=== PATIENT | female | born 1955 | race Caucasian/White ===

== ENCOUNTER 2018-11-23 08:00 | Inpatient (IN) | payer OTHER ==
[2018-11-20 08:49] VITALS: BMI 22.3
[2018-11-23] MEDS ORDERED: FLU VACCINE QUAD 60 MCG/0.5 ML (MDV 18-19) IM ONE (10:00)
[2018-11-23] MEDS ORDERED: PNEUMOC 13-VAL CONJ-DIP CRM/PF 0.5 ML DISP.SYRIN IM ONE (10:04)
[2018-11-23] MEDS ORDERED: BENZOIN TINCTURE SWABSTICK TP ONE (10:09)
[2018-11-23] MEDS ORDERED: HEPARIN NA (PORCINE) 5,000 UNITS/ML 1ML VIAL ONE (10:09)
[2018-11-23] MEDS ORDERED: THROMBIN (BOVINE) 5,000 UNIT VIAL TP ONE (10:10)
[2018-11-23] MEDS ORDERED: fentaNYL CITRATE 250 MCG/5 ML VIAL ONE (12:28)
[2018-11-23] MEDS ORDERED: MIDAZOLAM HCL 2 MG/2 ML SINGLE DOSE VIAL ONE (12:28)
[2018-11-23] MEDS ORDERED: PROPOFOL 20 ML ONE ×17 (12:35→15:39)
[2018-11-23] MEDS ORDERED: ceFAZolin SODIUM 1 GM VIAL IVPB ONE ×2 (12:55→16:05)
[2018-11-23] MEDS ORDERED: PROMETHAZINE HCL 25 MG/1 ML VIAL IVPB PRN (12:58)
[2018-11-23] MEDS ORDERED: DEXAMETHASONE SOD PHOSPHATE 4 MG/1 ML VIAL IVPUSH PRN (12:58)
[2018-11-23] MEDS ORDERED: ONDANSETRON 4 MG/2 ML VIAL IVPUSH PRN ×2 (12:58→16:41)
[2018-11-23] MEDS ORDERED: TRANEXAMIC ACID 1000 MG/10 ML VIAL ONE (13:11)
[2018-11-23] MEDS ORDERED: ceFAZolin SODIUM 1 GM VIAL ONE ×2 (13:11→16:09)
[2018-11-23] MEDS ORDERED: DESFLURANE GAS 240 ML BOTTLE IH ONE (14:09)
[2018-11-23] MEDS ORDERED: VANCOMYCIN 1,000 MG VIAL (RESTRICTED TO ID ONLY) IVPB ONE (16:05)
[2018-11-23] MEDS ORDERED: oxyCODONE HCL 5 MG TABLET PO PRN ×2 (16:41)
[2018-11-23] MEDS ORDERED: diphenhydrAMINE HCL 25 MG CAPSULE (FP) PO PRN (16:41)
--- NOTE | 2018-11-23 17:21 | OP ---
Operative Note - Note: Operative Date: 11/23/18 Pre-Operative Diagnosis: C3-C4, C4-C5, C5-C6 disc prolapse with associated reactive bone formation due to osteophyte disc complex behind the vertebral bodies of C3, C4, C5 and C6. Associated with cervical spondylogenic myelopathy and right sided C6-C7 radiculopathy. Operation: 1. Colpectomy C4-C5, 2. Partial colpectomy C3, C4, C5 and C6. 3. Insertion of interbody cage device C3-C7. 4. Anterior arthrodesis C3 to C7. 5. Anterior plating C3-C7. Findings: as dictated Implants: as dictated Post-Operative Diagnosis: Same as Pre-op Surgeon: Pineda Dial Sort Line Worker: Claudine Nichols Anesthesiologist/HAND COKE DRAWER: Don Arreaga Anesthesia: General Specimens Removed: C3-4, C4-5 disc Estimated Blood Loss (mls): 50 (ml) Drains, Volume Out (mls): 700 (ml clear urine ) Fluid Volume Replaced (mls): 1,600 (ml) Operative Report Dictated: Yes
[2018-11-23] MEDS: LACTATED RINGERS SOLUTION 1000 ML INFUS.BAG IV SCH (17:33)
[2018-11-23] MEDS: MORPHINE SULFATE 2 MG/ML VIAL IVPUSH PRN (17:38)
[2018-11-23] MEDS ORDERED: CEFAZOLIN 1 GM/D5W 1 GM/50 ML BAG IVPB SCH (18:00)
--- NOTE | 2018-11-23 18:07 | CONSULT ---
Consultation: REQUESTING PROVIDER: Dr. Dial CONSULT REQUEST: We have been asked to medically evaluate this patient for post- op ICU monitoring. HISTORY OF PRESENT ILLNESS: 63F w/ pmhx of HTN, HLD, and cervical disc disorder presents to the ICU s/p C3- C4 partial corpectomy, C4-C5 anterior cervical corpectomy, POD #0. Unable to provide full interview upon exam as pt is still recovering from sedation. Denies leija/d, n/v, chest pain, sob, abd pain, numbness/tingling/pain in u/l b/l extremities. REVIEW OF SYSTEMS: Unable to obtain. PHYSICAL EXAMINATION Vital Signs - 24 hr 11/23/18 11/23/18 11/23/18 09:57 10:06 10:07 Temperature 98.3 F 98.3 F Pulse Rate 65 65 Respiratory 20 20 Rate Blood Pressure 147/61 147/61 O2 Sat by Pulse 96 Oximetry (%) GENERAL: Sedated. Lethargic. Open eyes upon verbal command. HEENT: AT/NC. Surgical dressing on anterior neck, c/d/i. Lungs: Mild inspiratory wheezes b/l anteriorly. CV: RRR. Normal S1, S2. No murmurs noted. Abd: Soft, NT/ND. Normoactive bs. No masses noted. Neuro: Facial muscles intact. B/l facial sensation intact. Responds to commands. Moves b/l feet and toes with sensation intact. +5/5 hand operations business partner b/l. Active Medications Atorvastatin Calcium (Lipitor -) 10 mg PO HS ARIANE Dexamethasone Sodium Phosphate (Decadron Injection -) 4 mg IVPUSH ONCE PRN PRN Reason: NAUSEA AND/OR VOMITING Diphenhydramine HCl (Benadryl Injection -) 12.5 mg IVPUSH ONCE PRN PRN Reason: FOR ITCHING Diphenhydramine HCl (Benadryl -) 25 mg PO Q6H PRN PRN Reason: FOR ITCHING Docusate Sodium (Colace -) 100 mg PO TID [facility] Fentanyl (Sublimaze Injection -) 50 mcg IVPUSH [id number] PRN PRN Reason: PAIN-PACU ORDER X 4 DOSES ONLY Last Admin: 11/23/18 17:22 Dose: 50 mcg Ferrous Sulfate (Feosol -) 325 mg PO DAILY [facility] Gabapentin (Neurontin -) 300 mg PO TID [facility] Hydrochlorothiazide (Hctz -) 25 mg PO DAILY [facility] Hydromorphone HCl (Dilaudid Medart Operator -) 10 mg CHIEF HUMAN RESOURCES OFFICER CHIEF HUMAN RESOURCES OFFICER [facility]; Protocol Stop: 11/30/18 12:58 Lactated Ringer's (Lactated Ringers Solution) 1,000 mls @ 125 mls/hr IV ASDIR [facility] Cefazolin Sodium (Ancef 1 Gm Premixed Ivpb -) 1 gm in 50 mls @ 100 mls/hr IVPB Q8H [facility] Stop: 11/24/18 20:44 Influenza Virus Vaccine Quadrival (Flulaval Quad [id number]) 60 mcg IM .ONCE ONE Stop: 11/23/18 10:01 Lactated Ringer's (Lactated Ringers Solution) 100 ml IV ASDIR [facility] Last Admin: 11/23/18 17:33 Dose: 100 ml Lisinopril (Prinivil) 20 mg PO DAILY [facility] Metoprolol Tartrate (Lopressor -) 100 mg PO DAILY [facility] Morphine Sulfate (Morphine Sulfate) 4 mg IVPUSH Q4H PRN PRN Reason: PAIN LEVEL 7 - 10 Last Admin: 11/23/18 17:38 Dose: 4 mg Ondansetron HCl (Zofran Injection) 4 mg IVPUSH Q4H PRN PRN Reason: NAUSEA AND/OR VOMITING Oxycodone HCl (Roxicodone -) 5 mg PO Q4H PRN PRN Reason: PAIN LEVEL 1-5 Oxycodone HCl (Roxicodone -) 10 mg PO Q4H PRN PRN Reason: PAIN LEVEL 6-10 Pneumococcal 13-Valent Conj Vacc (Prevnar 13 Syringe -) 0.5 ml IM .ONCE ONE Stop: 11/23/18 10:05 Promethazine HCl (Phenergan Injection -) 12.5 mg IVPB Q6H PRN PRN Reason: NAUSEA AND/OR VOMITING ASSESSMENT/PLAN: 63F w/ pmhx of HTN, HLD, and cervical disc disorder presents to the ICU s/p C3- C4 partial corpectomy, C4-C5 anterior cervical corpectomy, POD #0. #Cervical disc disorder; s/p C3-C4 partial corpectomy, C4-C5 anterior cervical corpectomy, POD #0. -Pain control: Dilaudid CHIEF HUMAN RESOURCES OFFICER, Fentanyl 50 mcg IVP Q5min, Gabapentin 500 TID, Morphine 4 Q4H IVP, Oxycodone 5 Q4H PO, Oxycodone 10 Q4H PO -Zofran 4 Q4H IVP -Benadryl 25 mg PO Q6H for itching -LR @ 125 -IV abx as per surg -IS, SCDs -PT -Neurosurg recs #HTN/HLD -Atorvastatin 10 HS, HCTZ 25 QD, Lisinopril 20 QD, Metoprolol 100 QD #Prophylaxis -SCDs #FEN -LR @ 125 -repletes lytes PRN -Soft diet dispo -Admit to ICU Dispo: We will continue to follow the patient. Thank you for this consultative opportunity. Visit type - Emergency Visit Emergency Visit: Yes ED Registration Date: 11/23/18 Care time: The patient presented to the Emergency Department on the above date and was hospitalized for further evaluation of their emergent condition. - New Patient This patient is new to me today: Yes Date on this admission: 11/24/18 - Critical Care Critical Care patient: Yes Total Critical Care Time (in minutes): 35 Critical Care Statement: The care of this patient involved high complexity decision making to prevent further life threatening deterioration of the patient 's condition and/or to evaluate & treat vital organ system(s) failure or risk of failure.
[2018-11-23] MEDS: HYDROmorphone *PCA* 10MG/50ML DISP.SYRIN PCA SCH (18:11)
[2018-11-23] MEDS: LACTATED RINGERS SOLUTION 1,000 ML IV SCH (20:53)
[2018-11-23] MEDS: DOCUSATE SODIUM 100 MG CAPSULE (FP) PO SCH (21:06)
[2018-11-23] MEDS: GABAPENTIN 300 MG CAPSULE (FP) PO SCH (21:06)
[2018-11-23] MEDS: CEFAZOLIN 1 GM/D5W 1 GM/50 ML BAG IVPB SCH (21:07)
--- NOTE | 2018-11-23 22:21 | PN ---
Physical Exam: SUBJECTIVE: Patient seen and examined at bedside. s/p C4-C5 anterior Cervical Discectomy with Fusion and Partial Corpectomy POD #0. Alert, awake and oriented x3. Patient reports having elective cervical discectomy secondary to cervical pain with parasthesias to hands/feet. Patient reports cervical pain 7/10. Patient reports having a non-productive cough. Patient reports having feeling in b/l feet and hands. Patient has Mancini draining yellow urine in collection bag. She denies having flatulence or BM. Patient denies fever, chills, SOB, dizziness, CP, palpitations, AP, N/V/D. OBJECTIVE: Vital Signs Period Temp Pulse Resp BP Sys/Valentine Pulse Ox Last 24 Hr 98.1 F-98.8 F 65-74 12-20 147-167/61-93 95-96 GENERAL: The patient is awake, alert, and fully oriented, in no acute distress. HEAD: Normal with no signs of trauma. 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 No ptosis. ENT: Ears normal, nares patent, oropharynx clear without exudates, moist mucous membranes. NECK: Dressing C/D/I. Trachea midline, Limited range of motion, supple. LUNGS: Breath sounds equal, clear to auscultation bilaterally, no wheezes, no crackles, no accessory muscle use. HEART: Regular rate and rhythm, S1, S2 without murmur, rub or gallop. ABDOMEN: Hypoactive bowel sounds. Soft, nontender, nondistended, no guarding, no rebound, no hepatosplenomegaly, no masses. GENITOURINARY: Mancini catheter with yellow urine in drainage bag EXTREMITIES: 2+ pulses, warm, well-perfused, no edema. NEUROLOGICAL: Cranial nerves II through XII grossly intact. Normal speech, gait not observed. PSYCH: Normal mood, normal affect. SKIN: Warm, dry, normal turgor, no rashes or lesions noted Active Medications Generic Name Dose Route Start Last Admin Trade Name Freq PRN Reason Stop Dose Admin Atorvastatin Calcium 10 mg 11/24/18 22:00 Lipitor - PO HS ARIANE Dexamethasone Sodium Phosphate 4 mg 11/23/18 12:58 Decadron Injection - IVPUSH ONCE PRN NAUSEA AND/OR VOMITING Diphenhydramine HCl 12.5 mg 11/23/18 12:58 11/23/18 21:06 Benadryl Injection - IVPUSH 12.5 mg ONCE PRN Administration FOR ITCHING Diphenhydramine HCl 25 mg 11/23/18 16:41 Benadryl - PO Q6H PRN FOR ITCHING Docusate Sodium 100 mg 11/23/18 22:00 11/23/18 21:06 Colace - PO 100 mg TID ARIANE Administration Fentanyl 50 mcg 11/23/18 12:58 11/23/18 17:58 Sublimaze Injection - IVPUSH 50 mcg [id number] PRN Administration PAIN-PACU ORDER X 4 DOSES ONLY Ferrous Sulfate 325 mg 11/24/18 10:00 Feosol - PO DAILY [facility] Gabapentin 300 mg 11/23/18 22:00 11/23/18 21:06 Neurontin - PO 300 mg TID ARIANE Administration Hydrochlorothiazide 25 mg 11/24/18 10:00 Hctz - PO DAILY [facility] Hydromorphone HCl 10 mg 11/23/18 13:00 11/23/18 18:11 Dilaudid Software Performance Engineer - FILM WRITER 11/30/18 12:58 10 mg FILM WRITER ARIANE Administration Protocol Lactated Ringer's 1,000 mls @ 125 mls/hr 11/23/18 13:00 11/23/18 20:53 Lactated Ringers Solution IV Not Given ASDIR [facility] Cefazolin Sodium 1 gm in 50 mls @ 100 mls/hr 11/23/18 20:45 11/23/18 21:07 Ancef 1 Gm Premixed Ivpb - IVPB 11/24/18 20:44 100 mls/hr Q8H ARIANE Administration Influenza Virus Vaccine Quadrival 60 mcg 11/23/18 10:00 Flulaval Quad [id number] IM 11/23/18 10:01 .ONCE ONE Lactated Ringer's 100 ml 11/23/18 17:15 11/23/18 17:33 Lactated Ringers Solution IV 100 ml ASDIR ARIANE Administration Lisinopril 20 mg 11/24/18 10:00 Prinivil PO DAILY [facility] Metoprolol Tartrate 100 mg 11/24/18 10:00 Lopressor - PO DAILY [facility] Morphine Sulfate 4 mg 11/23/18 16:41 11/23/18 17:38 Morphine Sulfate IVPUSH 4 mg Q4H PRN Administration PAIN LEVEL 7 - 10 Ondansetron HCl 4 mg 11/23/18 12:58 Zofran Injection IVPUSH Q4H PRN NAUSEA AND/OR VOMITING Oxycodone HCl 5 mg 11/23/18 16:41 Roxicodone - PO Q4H PRN PAIN LEVEL 1-5 Oxycodone HCl 10 mg 11/23/18 16:41 Roxicodone - PO Q4H PRN PAIN LEVEL 6-10 Pneumococcal 13-Valent Conj Vacc 0.5 ml 11/23/18 10:04 Prevnar 13 Syringe - IM 11/23/18 10:05 .ONCE ONE Promethazine HCl 12.5 mg 11/23/18 12:58 Phenergan Injection - IVPB Q6H PRN NAUSEA AND/OR VOMITING ASSESSMENT/PLAN: This is a 63 y/o woman with a PMHx of: HTN, HLD, Chronic Cervical Pain, Renal Colic. s/p C4-C5 Anterior Cervical Discectomy with Fusion and Partial Corpectomy POD #0 Plan: Continue Ortho Regimen Continue cardiac monitoring Monitor CBC, BMP Pain Mgmt per ortho Resume diet when patient has flatulence, BS present Continue IVF Continue Mancini, d/c when ambulatory Continue Lisinopril, Lopressor, HCTZ, Gabapentin Fall Precautions Neurovascular checks Bowel regimen- Colace DVT ppx- OOB, SCDs Code Status: Full Code Dispo: Requires Inpatient Care Problem List - Problems (1) S/P cervical discectomy Code(s): Z98.890 - OTHER SPECIFIED POSTPROCEDURAL STATES (2) Cervical pain (neck) Code(s): M54.2 - CERVICALGIA (3) HTN (hypertension) Code(s): I10 - ESSENTIAL (PRIMARY) HYPERTENSION (4) HLD (hyperlipidemia) Code(s): E78.5 - HYPERLIPIDEMIA, UNSPECIFIED (5) Macular degeneration Code(s): H35.30 - UNSPECIFIED MACULAR DEGENERATION Visit type - Emergency Visit Emergency Visit: No - New Patient This patient is new to me today: Yes Date on this admission: 11/23/18 - Critical Care Critical Care patient: Yes Total Critical Care Time (in minutes): 33 Critical Care Statement: The care of this patient involved high complexity decision making to prevent further life threatening deterioration of the patient 's condition and/or to evaluate & treat vital organ system(s) failure or risk of failure. - Discharge Referral Referred to [facility] No
[2018-11-24] MEDS: MORPHINE SULFATE 2 MG/ML VIAL IVPUSH PRN ×4 (03:26→21:39)
[2018-11-24] MEDS: CEFAZOLIN 1 GM/D5W 1 GM/50 ML BAG IVPB SCH ×2 (04:45→14:00)
[2018-11-24] MEDS: DOCUSATE SODIUM 100 MG CAPSULE (FP) PO SCH ×3 (05:48→21:41)
[2018-11-24] MEDS: GABAPENTIN 300 MG CAPSULE (FP) PO SCH ×3 (05:48→21:40)
[2018-11-24 06:09] LABS: HEMATOCRIT 34.3 % (32.4-45.2); MCH 33.1 pg (25.7-33.7); MCHC 34.9 g/dl (32.0-36.0); MEAN CELL VOLUME 94.8 fl (80-96); MEAN PLT VOLUME 8.2 fl (7.5-11.1); PLATELET COUNT 291 K/MM3 (134-434); RBC 3.62 M/mm3 (3.60-5.2); RDW 13.5 % (11.6-15.6); WHITE BLOOD COUNT 12.4 K/mm3 (4.0-10.0)
[2018-11-24 06:30] LABS: ANION GAP 6 MMOL/L (8-16); BLOOD UREA NITROGEN 18 mg/dL (7-18); CALCIUM 8.4 mg/dL (8.5-10.1); CHLORIDE 106 mmol/L (98-107); CO2 26 mmol/L (21-32); CREATININE 0.9 mg/dL (0.55-1.3); GLUCOSE,RANDOM 84 mg/dL (74-106); POTASSIUM 4.1 mmol/L (3.5-5.1); SODIUM 139 mmol/L (136-145)
--- NOTE | 2018-11-24 07:37 | OP ---
DATE OF OPERATION: 11/23/2018 SURGEON: Pineda Dial MD SENIOR UNDERWRITING ASSISTANT: DEVYN Pinedo PREOPERATIVE DIAGNOSIS: C3-C4, C4-C5, C5-C6 disc prolapse with associated reactive bone formation due to osteophyte disc complex behind the vertebral bodies of C3 , C4, C5, and C6. This associated stenosis with cervical spondylogenic myelopathy and right-sided C6-C7 radiculopathy. POSTOPERATIVE DIAGNOSIS: C3-C4, C4-C5, C5-C6 disc prolapse with associated reactive bone formation due to osteophyte disc complex behind the vertebral bodies of C3 , C4, C5, and C6. This associated stenosis with cervical spondylogenic myelopathy and right-sided C6-C7 radiculopathy. OPERATION PERFORMED: 1. Corpectomy C4-C5. 2. Partial corpectomy C3,and C6. 3. Insertion of interbody cage device C3 to C7. 4. Anterior arthrodesis C3 to C7. 5. Anterior plating C3 to C7. OPERATION IN DETAIL: The patient was correctly identified, brought in the operating room. Patient was placed supine, and general anesthesia and bolsters were placed transversely behind the scapulae to extend the neck. Monitoring was performed pre-positioning, and then post-positioning showed no change and well-maintained ASCP as well as neuromonitoring findings. Routine drape with Betadine scrub solution , wiped with alcohol, DuraPrep this being applied. A window drape was applied. Time-out was called. Imaging was available for intraoperative evaluation. Oblique incision made at the lines of Von at the cricothyroid interval, this on the right hand side. This enabled an easy access to the investing layer of fascia, which was opened. Massive anterior jugular vein encountered. This was ligated without any difficulty. Dissection was taken then lateral to the strap muscles. With digital palpation, the anterior vertebral bodies were easily identified. The pharynx and larynx were retracted to the left, and the carotid sheath to the right. A marker pin was placed into the C4-C5 disc and verified on the lateral fluoroscopic x-rays the correct levels for surgical treatment. The appropriate retractor systems were inserted once the longus coli muscles had been lifted off the bone using unipolar Bovie, the teeth of retractors in the longus coli muscles. First, the discs of C3-C4, C4-C5, and C5-C6 were resected. We used curettes and the 40-mm nguyễn- tip Midas prem to free the end-plates, particularly the inferior end-plate of C3 and superior end-plate of C6, and we flattened the end-plates completely down to healthy bleeding bone. Once this had been performed, using a Matchstick Midas prem, lateral gutters were cut into the bone bed. This enabled cutting all the way down to the cortex posteriorly. The central portion of bone was then harvested using rongeurs for the bone graft for the cage. This was autologous bone graft appropriately. Once we got down with the 40-mm Midas Moustapha prem changed from the Matchstick prem, the posterior surface of bone was completely freed, the bone resected using Kerrison upcuts, exposing the dura completely, but leaving the posterior longitudinal ligament on the left lateral gutter to prevent any over-distraction from the cage insertion. It must be noted the retractors that were inserted for medial lateral retraction were augmented with Satartia pins as cranial caudal retractors and slight distraction, the Satartia pins were placed in C4 and C6. A lateral x-ray taken again revealed excellent positioning of the pins themselves. A complete decompression having been now completed with healthy end-plate bone enabled us to measure accurately the length of the cage that was needed. We used OptiMesh. This was filled with autologous bone that was harvested from the patients own bone bed itself onto the other size 44 plate, this was a size 44 precision anterior cervical plate. Two screws in C4 and two screws in C6 solidly fixed with the appropriate cap-locking device applied. The wounds were thoroughly lavaged throughout. Hemostasis was sound. The wounds were closed as follows. Investing layer of fascia with 3-0 Vicryl, subcutaneous 3-0 Vicryl, skin 3-0 Monocryl with Steri-Strips. No complications. MD GARIMA Garcia/[id number] MTDD
--- NOTE | 2018-11-24 07:51 | PN ---
Progress Note (short form) - Note Progress Note: POD #1 Alert. Sitting up in bed at 45 degrees. C/o incisional pain. Adequate pain control with meds ordered. No acute events since surgery per RN notes. Denies n/v/f/c, CP or SOB. Last Vital Signs Temp Pulse Resp BP Pulse Ox 98.5 F 63 12 147/66 96 03/ 06:00 11/24/18 06:00 11/24/18 06:00 11/24/18 06:00 11/23/18 21:00 CBC, BMP 11/24/18 05:30 11/24/18 05:30 PE Gen: alert. nad Neck: dressing c/d/i. No hematoma. Neuro: GMNVI bilat LE: SCDs bilat. Soft. NT Problem List - Problems (1) Cervical pain (neck) Assessment/Plan: 63 yo female POD #1 s/p C3-C4 partial corpectomy, C4-C5 anterior cervical corpectomy Doing well. Soft cervical collar PT Incentive spirometer Pain management PRN Soft diet and advance as tolerated Can downgrade to the floor DVT PPX Above plan discussed with Dr. Pineda Dial and agrees. Code(s): M54.2 - CERVICALGIA
[2018-11-24] MEDS ORDERED: HEPARIN NA (PORCINE) 5,000 UNITS/ML 1ML VIAL SQ SCH (08:00)
--- NOTE | 2018-11-24 08:10 | PN ---
Physical Exam: SUBJECTIVE: Patient seen and examined this AM. She states she had significant pain overnight but that her pain is reasonably controlled at this point. denies any flatus or bowel movement yet. States that she will comply with physical therapy best she can. OBJECTIVE: Vital Signs Period Temp Pulse Resp BP Sys/Valentine Pulse Ox Last 24 Hr 97.9 F-98.8 F 54-74 12-20 121-167/61-93 95-96 GEN: A&O, no acute distress HEENT: dry mucus membranes NECK: Supple, anterior dressing clean and in tact. minimal ROM limited by pain HEART: RRR, no murmurs noted LUNGS: CTA b/l ABDOMEN: Soft nontender, hypoactive bowel sounds EXTREMITIES: 2+ pulses, no peripheral edema or pain, good ROM and strength in b/ l UE Laboratory Results - last 24 hr 11/24/18 11/24/18 05:30 05:30 WBC 12.4 H RBC 3.62 Hgb 12.0 Hct 34.3 MCV 94.8 MCH 33.1 MCHC 34.9 RDW 13.5 Plt Count 291 MPV 8.2 Sodium 139 Potassium 4.1 Chloride 106 Carbon Dioxide 26 Anion Gap 6 L BUN 18 Creatinine 0.9 Creat Clearance w eGFR 63.04 Random Glucose 84 Calcium 8.4 L Active Medications Generic Name Dose Route Start Last Admin Trade Name Freq PRN Reason Stop Dose Admin Atorvastatin Calcium 10 mg 11/24/18 22:00 Lipitor - PO HS ARIANE Dexamethasone Sodium Phosphate 4 mg 11/23/18 12:58 Decadron Injection - IVPUSH ONCE PRN NAUSEA AND/OR VOMITING Diphenhydramine HCl 12.5 mg 11/23/18 12:58 11/23/18 21:06 Benadryl Injection - IVPUSH 12.5 mg ONCE PRN Administration FOR ITCHING Diphenhydramine HCl 25 mg 11/23/18 16:41 Benadryl - PO Q6H PRN FOR ITCHING Docusate Sodium 100 mg 11/23/18 22:00 11/24/18 05:48 Colace - PO 100 mg TID ARIANE Administration Fentanyl 50 mcg 11/23/18 12:58 11/23/18 17:58 Sublimaze Injection - IVPUSH 50 mcg [id number] PRN Administration PAIN-PACU ORDER X 4 DOSES ONLY Ferrous Sulfate 325 mg 11/24/18 10:00 Feosol - PO DAILY [facility] Gabapentin 300 mg 11/23/18 22:00 11/24/18 05:48 Neurontin - PO 300 mg TID [facility] Administration Hydrochlorothiazide 25 mg 11/24/18 10:00 Hctz - PO DAILY [facility] Hydromorphone HCl 10 mg 11/23/18 13:00 11/23/18 18:11 Dilaudid Geothermal System Installer - STONE BREAKER 11/30/18 12:58 10 mg STONE BREAKER ARIANE Administration Protocol Lactated Ringer's 1,000 mls @ 125 mls/hr 11/23/18 13:00 11/23/18 20:53 Lactated Ringers Solution IV Not Given ASDIR [facility] Cefazolin Sodium 1 gm in 50 mls @ 100 mls/hr 11/23/18 20:45 11/24/18 04:45 Ancef 1 Gm Premixed Ivpb - IVPB 11/24/18 20:44 100 mls/hr Q8H ARIANE Administration Influenza Virus Vaccine Quadrival 60 mcg 11/23/18 10:00 Flulaval Quad [id number] IM 11/23/18 10:01 .ONCE ONE Lactated Ringer's 100 ml 11/23/18 17:15 11/23/18 17:33 Lactated Ringers Solution IV 100 ml ASDIR [facility] Administration Lisinopril 20 mg 11/24/18 10:00 Prinivil PO DAILY [facility] Metoprolol Tartrate 100 mg 11/24/18 10:00 Lopressor - PO DAILY [facility] Morphine Sulfate 4 mg 11/23/18 16:41 11/24/18 03:26 Morphine Sulfate IVPUSH 4 mg Q4H PRN Administration PAIN LEVEL 7 - 10 Ondansetron HCl 4 mg 11/23/18 12:58 Zofran Injection IVPUSH Q4H PRN NAUSEA AND/OR VOMITING Oxycodone HCl 5 mg 11/23/18 16:41 Roxicodone - PO Q4H PRN PAIN LEVEL 1-5 Oxycodone HCl 10 mg 11/23/18 16:41 Roxicodone - PO Q4H PRN PAIN LEVEL 6-10 Pneumococcal 13-Valent Conj Vacc 0.5 ml 11/23/18 10:04 Prevnar 13 Syringe - IM 11/23/18 10:05 .ONCE ONE Promethazine HCl 12.5 mg 11/23/18 12:58 Phenergan Injection - IVPB Q6H PRN NAUSEA AND/OR VOMITING ASSESSMENT/PLAN: 63F w/ pmhx of HTN, HLD, and cervical disc disorder presents to the ICU s/p C3- C4 partial corpectomy, C4-C5 anterior cervical corpectomy, POD #1. #Cervical disc disorder; s/p C3-C4 partial corpectomy, C4-C5 anterior cervical corpectomy, POD #1. Pain control: Dilaudid STONE BREAKER, Fentanyl 50 mcg IVP Q5min, Gabapentin 500 TID, Morphine 4 Q4H IVP, Oxycodone 5 Q4H PO, Oxycodone 10 Q4H PO Zofran 4 Q4H IVP Benadryl 25 mg PO Q6H for itching LR @ 125 Incentive Spirometry Physical Therapy, OOB as tolerated/Early ambulation Soft cervical collar Mechanical DVT Prophylaxis CARDIOVASCULAR -HTN HCTZ 25 mg PO Daily, Lisinopril 20 mg PO Daily, Metoprolol 100 mg PO Daily -HLD Atorvastatin 10mg PO HS PROPHYLAXIS -SCDs FEN -LR @ 125 -repletes lytes PRN -Soft diet, advance as tolerated DISPOSITION Stable for transfer to Med/Surg Visit type - Emergency Visit Emergency Visit: No - New Patient This patient is new to me today: Yes Date on this admission: 11/24/18 - Critical Care Critical Care patient: No
[2018-11-24 08:26] LABS: PHOSPHOROUS 3.4 mg/dL (2.5-4.9)
[2018-11-24] MEDS ORDERED: LISINOPRIL 20 MG TABLET (FP) PO SCH (10:00)
[2018-11-24] MEDS ORDERED: HYDROCHLOROTHIAZIDE 25 MG TABLET (FP) PO SCH (10:00)
[2018-11-24] MEDS ORDERED: METOPROLOL TARTRATE 50 MG TABLET (FP) PO SCH (10:00)
[2018-11-24] MEDS ORDERED: FERROUS SO4 325 MG TABLET (FP) PO SCH (10:00)
[2018-11-24] MEDS ORDERED: PATIENT'S OWN MEDICATION (NON-FORMULARY) (Lisinopril/Hydrochlorothiazide [Lisinopril-Hctz PO SCH (10:00)
--- NOTE | 2018-11-24 10:41 | PN ---
Physical Exam: SUBJECTIVE: Patient seen and examined in the icu. having alot of pain. was given morphine iv push just now. OBJECTIVE: Vital Signs Period Temp Pulse Resp BP Sys/Valentine Pulse Ox Last 24 Hr 97.9 F-98.8 F 54-74 12-15 121-167/65-93 95-96 GENERAL: The patient is awake, alert, and fully oriented, in no acute distress. HEAD: Normal with no signs of trauma. EYES: left eye blindness ENT: Ears normal, nares patent, oropharynx clear without exudates, moist mucous membranes. NECK: dressing c/d/i HEART: tachycardia 105 ABDOMEN: Soft, nontender, nondistended, normoactive bowel sounds, no guarding, no rebound, no hepatosplenomegaly, no masses. NEUROLOGICAL: Normal speech, gait not observed. Laboratory Results - last 24 hr 11/24/18 11/24/18 05:30 05:30 WBC 12.4 H RBC 3.62 Hgb 12.0 Hct 34.3 MCV 94.8 MCH 33.1 MCHC 34.9 RDW 13.5 Plt Count 291 MPV 8.2 Sodium 139 Potassium 4.1 Chloride 106 Carbon Dioxide 26 Anion Gap 6 L BUN 18 Creatinine 0.9 Creat Clearance w eGFR 63.04 Random Glucose 84 Calcium 8.4 L Phosphorus 3.4 Magnesium 2.0 Active Medications Generic Name Dose Route Start Last Admin Trade Name Freq PRN Reason Stop Dose Admin Acetaminophen 1,000 mg 11/24/18 10:40 Ofirmev Injection - IVPB 11/24/18 10:41 ONCE ONE Atorvastatin Calcium 10 mg 11/24/18 22:00 Lipitor - PO HS ARIANE Dexamethasone Sodium Phosphate 4 mg 11/23/18 12:58 Decadron Injection - IVPUSH ONCE PRN NAUSEA AND/OR VOMITING Diphenhydramine HCl 12.5 mg 11/23/18 12:58 11/23/18 21:06 Benadryl Injection - IVPUSH 12.5 mg ONCE PRN Administration FOR ITCHING Diphenhydramine HCl 25 mg 11/23/18 16:41 Benadryl - PO Q6H PRN FOR ITCHING Docusate Sodium 100 mg 11/23/18 22:00 11/24/18 05:48 Colace - PO 100 mg TID ARIANE Administration Fentanyl 50 mcg 11/23/18 12:58 11/23/18 17:58 Sublimaze Injection - IVPUSH 50 mcg [id number] PRN Administration PAIN-PACU ORDER X 4 DOSES ONLY Ferrous Sulfate 325 mg 11/24/18 10:00 11/24/18 10:31 Feosol - PO 325 mg DAILY ARIANE Administration Gabapentin 300 mg 11/23/18 22:00 11/24/18 05:48 Neurontin - PO 300 mg TID ARIANE Administration Hydrochlorothiazide 25 mg 11/24/18 10:00 11/24/18 10:31 Hctz - PO 25 mg DAILY ARIANE Administration Hydromorphone HCl 10 mg 11/23/18 13:00 11/23/18 18:11 Dilaudid Machine Mover - SALON STYLIST 11/30/18 12:58 10 mg SALON STYLIST ARIANE Administration Protocol Lactated Ringer's 1,000 mls @ 125 mls/hr 11/23/18 13:00 11/23/18 20:53 Lactated Ringers Solution IV Not Given ASDIR ARIANE Cefazolin Sodium 1 gm in 50 mls @ 100 mls/hr 11/23/18 20:45 11/24/18 04:45 Ancef 1 Gm Premixed Ivpb - IVPB 11/24/18 20:44 100 mls/hr Q8H ARIANE Administration Influenza Virus Vaccine Quadrival 60 mcg 11/23/18 10:00 Flulaval Quad [id number] IM 11/23/18 10:01 .ONCE ONE Lactated Ringer's 100 ml 11/23/18 17:15 11/23/18 17:33 Lactated Ringers Solution IV 100 ml ASDIR ARIANE Administration Lisinopril 20 mg 11/24/18 10:00 11/24/18 10:31 Prinivil PO 20 mg DAILY ARIANE Administration Metoprolol Tartrate 100 mg 11/24/18 10:00 11/24/18 10:31 Lopressor - PO 100 mg DAILY ARIANE Administration Morphine Sulfate 4 mg 11/23/18 16:41 11/24/18 10:13 Morphine Sulfate IVPUSH 4 mg Q4H PRN Administration PAIN LEVEL 7 - 10 Ondansetron HCl 4 mg 11/23/18 12:58 Zofran Injection IVPUSH Q4H PRN NAUSEA AND/OR VOMITING Oxycodone HCl 5 mg 11/23/18 16:41 Roxicodone - PO Q4H PRN PAIN LEVEL 1-5 Oxycodone HCl 10 mg 11/23/18 16:41 Roxicodone - PO Q4H PRN PAIN LEVEL 6-10 Pneumococcal 13-Valent Conj Vacc 0.5 ml 11/23/18 10:04 Prevnar 13 Syringe - IM 11/23/18 10:05 .ONCE ONE Promethazine HCl 12.5 mg 11/23/18 12:58 Phenergan Injection - IVPB Q6H PRN NAUSEA AND/OR VOMITING ASSESSMENT/PLAN: patient is a 63 year old female with a significant past medical history of left eye blindness, HTN, HLD, Chronic Cervical Pain, Renal Colic. s/p C4-C5 Anterior Cervical Discectomy with Fusion and Partial Corpectomy POD #1 Cervical surgery Partical corpectomy pod #1 Pain management monitor airway advance diet per surgery bowel regimen Continue cardiac monitoring Monitor labs, vitals Resume diet when patient has flatulence IV hydration Card: Hypertension. Hypertensive this morning, but also having pain On Lisinopril, hctz monitor BP fen advance diet per surgery monitor electrolytes prophy SCDS Visit type - Emergency Visit Emergency Visit: Yes ED Registration Date: 11/23/18 Care time: The patient presented to the Emergency Department on the above date and was hospitalized for further evaluation of their emergent condition. - New Patient This patient is new to me today: Yes Date on this admission: 11/24/18 - Critical Care Critical Care patient: Yes Total Critical Care Time (in minutes): 30 Critical Care Statement: The care of this patient involved high complexity decision making to prevent further life threatening deterioration of the patient 's condition and/or to evaluate & treat vital organ system(s) failure or risk of failure.
[2018-11-24] MEDS ORDERED: ACETAMINOPHEN 1000 MG/100 ML VIAL (NON FORMULARY) IVPB ONE (11:30)
--- NOTE | 2018-11-24 12:20 | PN ---
Teaching Attending Note Name of Resident: Ricardo Paulino ATTENDING PHYSICIAN STATEMENT I saw and evaluated the patient. I reviewed the resident's note and discussed the case with the resident. I agree with the resident's findings and plan as documented. SUBJECTIVE: Pt seen and examined in the ICU. s/p C3-C4 partial corpectomy/C4-C5 anterior cervical corpectomy. Still with significant pain. No nausea or vomiting. No shortness of breath or chest pain. OBJECTIVE: Vital Signs Period Temp Pulse Resp BP Sys/Valentine Pulse Ox Last 24 Hr 97.9 F-98.8 F 54-74 12-15 121-167/65-93 95-96 Intake & Output 11/21/18 11/22/18 11/23/18 11/24/18 23:59 23:59 23:59 23:59 Intake Total 2050 925 Output Total 1160 600 Balance 890 325 Gen: NAD at rest Heart: RRR Lung: decreased breath sounds at the bases Abd: soft, nontender Ext: no edema CBC, BMP 11/24/18 05:30 11/24/18 05:30 Active Medications Atorvastatin Calcium (Lipitor -) 10 mg PO HS [facility] Dexamethasone Sodium Phosphate (Decadron Injection -) 4 mg IVPUSH ONCE PRN PRN Reason: NAUSEA AND/OR VOMITING Diphenhydramine HCl (Benadryl Injection -) 12.5 mg IVPUSH ONCE PRN PRN Reason: FOR ITCHING Last Admin: 11/23/18 21:06 Dose: 12.5 mg Diphenhydramine HCl (Benadryl -) 25 mg PO Q6H PRN PRN Reason: FOR ITCHING Docusate Sodium (Colace -) 100 mg PO TID [facility] Last Admin: 11/24/18 05:48 Dose: 100 mg Fentanyl (Sublimaze Injection -) 50 mcg IVPUSH [id number] PRN PRN Reason: PAIN-PACU ORDER X 4 DOSES ONLY Last Admin: 11/23/18 17:58 Dose: 50 mcg Ferrous Sulfate (Feosol -) 325 mg PO DAILY [facility] Last Admin: 11/24/18 10:31 Dose: 325 mg Gabapentin (Neurontin -) 300 mg PO TID [facility] Last Admin: 11/24/18 05:48 Dose: 300 mg Hydrochlorothiazide (Hctz -) 25 mg PO DAILY [facility] Last Admin: 11/24/18 10:31 Dose: 25 mg Hydromorphone HCl (Dilaudid Addictions Therapist -) 10 mg TENTERING MACHINE FEEDER TENTERING MACHINE FEEDER [facility]; Protocol Stop: 11/30/18 12:58 Last Admin: 11/23/18 18:11 Dose: 10 mg Lactated Ringer's (Lactated Ringers Solution) 1,000 mls @ 125 mls/hr IV ASDIR [facility] Last Admin: 11/23/18 20:53 Dose: Not Given Cefazolin Sodium (Ancef 1 Gm Premixed Ivpb -) 1 gm in 50 mls @ 100 mls/hr IVPB Q8H [facility] Stop: 11/24/18 20:44 Last Admin: 11/24/18 04:45 Dose: 100 mls/hr Influenza Virus Vaccine Quadrival (Flulaval Quad [id number]) 60 mcg IM .ONCE ONE Stop: 11/23/18 10:01 Lactated Ringer's (Lactated Ringers Solution) 100 ml IV ASDIR [facility] Last Admin: 11/23/18 17:33 Dose: 100 ml Lisinopril (Prinivil) 20 mg PO DAILY [facility] Last Admin: 11/24/18 10:31 Dose: 20 mg Metoprolol Tartrate (Lopressor -) 100 mg PO DAILY [facility] Last Admin: 11/24/18 10:31 Dose: 100 mg Morphine Sulfate (Morphine Sulfate) 4 mg IVPUSH Q4H PRN PRN Reason: PAIN LEVEL 7 - 10 Last Admin: 11/24/18 10:13 Dose: 4 mg Ondansetron HCl (Zofran Injection) 4 mg IVPUSH Q4H PRN PRN Reason: NAUSEA AND/OR VOMITING Oxycodone HCl (Roxicodone -) 5 mg PO Q4H PRN PRN Reason: PAIN LEVEL 1-5 Oxycodone HCl (Roxicodone -) 10 mg PO Q4H PRN PRN Reason: PAIN LEVEL 6-10 Pneumococcal 13-Valent Conj Vacc (Prevnar 13 Syringe -) 0.5 ml IM .ONCE ONE Stop: 11/23/18 10:05 Promethazine HCl (Phenergan Injection -) 12.5 mg IVPB Q6H PRN PRN Reason: NAUSEA AND/OR VOMITING ASSESSMENT AND PLAN: Cervical disc disorder s/p C3-C4 partial corpectomy/C4-C5 anterior cervical corpectomy HTN Hyperlipidemia - pain control - incentive spirometry - bowel regimen - PO as tolerated - rehab/PT - DVT prophylaxis
--- NOTE | 2018-11-24 12:47 | PN ---
Progress Note (short form) - Note Progress Note: Anesthesia postop note 63 y/o F s/p GA for C3-5 corpectomy, certified ophthalmic technician for postop pain management. POD#1, vss, aaox3, some pain, discomfort while swalowing, instructed to use the certified ophthalmic technician and ask for the breakthrough doses. No anesthesia complications.
--- NOTE | 2018-11-24 13:33 | SURG ---
Surgery Iron Worker Apprentice Note Iron Worker Apprentice: Claudine Nichols PA-C (Suzy) Date of Service: 11/23/18 Diagnosis: C3-C4, C4-C5, C5-C6 disc prolapse with associated reactive bone formation due to osteophyte disc complex behind the vertebral bodies of C3, C4, C5 and C6. Associated with cervical spondylogenic myelopathy and right sided C6-C7 radiculopathy. Procedure: 1. Colpectomy C4-C5, 2. Partial colpectomy C3, C4, C5 and C6. 3. Insertion of interbody cage device C3-C7. 4. Anterior arthrodesis C3 to C7. 5. Anterior plating C3-C7. I was present for the entirety of the operative procedure. For further detail, please refer to operative report. Visit type - Case Type Case Type: Scheduled - Emergency Emergency Visit: No - New patient This patient is new to me today: Yes Date on this admission: 11/24/18 - Critical Care Critical Care patient: No
[2018-11-24] MEDS: LACTATED RINGERS SOLUTION 1,000 ML IV SCH (16:04)
[2018-11-24] MEDS: LACTATED RINGERS SOLUTION 1000 ML INFUS.BAG IV SCH (17:57)
[2018-11-24] MEDS ORDERED: PNEUMOC 13-VAL CONJ-DIP CRM/PF 0.5 ML DISP.SYRIN IM ONE (20:40)
[2018-11-24] MEDS ORDERED: ATORVASTATIN CA 10 MG TABLET (FP) PO SCH (22:00)
[2018-11-24] MEDS ORDERED: ONDANSETRON 4 MG/2 ML VIAL IVPUSH PRN (22:46)
[2018-11-24] MEDS ORDERED: morphine SULFATE 4 MG/ML VIAL IVPUSH PRN (22:46)
[2018-11-24] MEDS ORDERED: PROMETHAZINE HCL 25 MG/1 ML VIAL IVPB PRN (22:46)
[2018-11-24] MEDS ORDERED: diphenhydrAMINE HCL 25 MG CAPSULE (FP) PO PRN (22:46)
[2018-11-24] MEDS: oxyCODONE HCL 5 MG TABLET PO PRN (23:07)
[2018-11-25] MEDS: LACTATED RINGERS SOLUTION 1000 ML INFUS.BAG IV SCH ×2 (00:13→22:53)
[2018-11-25] MEDS: HYDROmorphone *PCA* 10MG/50ML DISP.SYRIN PCA SCH ×4 (02:10→23:42)
[2018-11-25] MEDS: DOCUSATE SODIUM 100 MG CAPSULE (FP) PO SCH ×3 (05:40→20:59)
[2018-11-25] MEDS: oxyCODONE HCL 5 MG TABLET PO PRN ×4 (05:40→20:59)
[2018-11-25] MEDS: GABAPENTIN 300 MG CAPSULE (FP) PO SCH ×3 (05:40→21:00)
[2018-11-25 07:23] LABS: BASO % 0.1 % (0-2.0); HEMATOCRIT 34.3 % (32.4-45.2); LYMPH % 16.6 % (8-40); MCH 33.1 pg (25.7-33.7); MCHC 35.1 g/dl (32.0-36.0); MEAN CELL VOLUME 94.1 fl (80-96); MEAN PLT VOLUME 8.3 fl (7.5-11.1); MONO % 11.9 % (3.8-10.2); NEUT % 70.4 % (42.8-82.8); PLATELET COUNT 293 K/MM3 (134-434); RBC 3.64 M/mm3 (3.60-5.2); RDW 13.3 % (11.6-15.6); WHITE BLOOD COUNT 15.1 K/mm3 (4.0-10.0)
[2018-11-25 08:19] LABS: ALBUMIN 3.2 g/dl (3.4-5.0); ALK PHOS 64 U/L (45-117); ANION GAP 8 MMOL/L (8-16); BILIRUBIN,TOTAL 0.5 mg/dL (0.2-1); BLOOD UREA NITROGEN 8 mg/dL (7-18); CHLORIDE 98 mmol/L (98-107); CO2 28 mmol/L (21-32); CREATININE 0.6 mg/dL (0.55-1.3); GLUCOSE,RANDOM 95 mg/dL (74-106); MAGNESIUM 1.7 mg/dL (1.8-2.4); POTASSIUM 3.6 mmol/L (3.5-5.1); SGOT/AST 20 U/L (15-37); SGPT/ALT 19 U/L (13-61); SODIUM 134 mmol/L (136-145)
--- NOTE | 2018-11-25 08:47 | PN ---
Progress Note (short form) - Note Progress Note: Surgery POD #2 C3-C4 partial corpectomy, C4-C5 anterior cervical corpectomy. Patient seen and examined at bedside c/o phlegm and sore throat. She is tolerating her diet and ambulating with PT. Patient denies any CP, SOB, Fever, Chills, N/v/d. Vital Signs Temp 99.0 F 11/25/18 06:00 Pulse 99 H 11/25/18 06:05 Resp 20 11/25/18 06:05 BP 150/80 11/25/18 06:05 Pulse Ox 96 11/24/18 10:00 Intake & Output 11/24/18 11/24/18 11/25/18 11:59 23:59 11:59 Intake Total 925 2350 Output Total 600 1800 Balance 325 550 Intake: IV 875 1800 Lactated Ringers Solution 875 1800 1,000 ml @ 125 mls/hr IV ASDIR ARIANE Rx#: [id number] IVPB 50 50 Oral 500 Output: Urine 600 1800 Powell 600 1800 Other: Voiding Method Indwelling Catheter Indwelling Catheter Bedpan Bowel Movement No CBC, BMP 11/25/18 06:45 11/25/18 06:45 PE: A&Ox3, NAD Unlabored resp on RA Incision c/d/i with steri strips in place and surrounding tissue intact, no d/ c. focal edema over lateral aspect of incision-ttp with Mild erythema and ecchymosis over proximal chest extending from neck down- Soft and non-tender to palpation. Trachea midline Moving all extremities without limitation. B/L LE compartments soft,supple and non-tender with +2 DP pulses. 5/5 dorsi/ plantar flexion Problem List - Problems (1) S/P cervical discectomy Assessment/Plan: POD #2 ACDF with productive cough and bump in WBC-likely 2/2 inflammatory response post op. 1) portable CXR r/o atelectasis vs early pneumonia 2) d/c powell 3) OOB with soft collar and PT as tolerated 4) Pain control with HAND FORMER 5) DVT and GI prophylaxis 6) advance diet as tolerated 7) cold pack to chest an neck. Evaluation and plan discussed with Dr Dial. Code(s): Z98.890 - OTHER SPECIFIED POSTPROCEDURAL STATES
[2018-11-25] MEDS ORDERED: PNEUMOCOCCAL 23 VACCINE 0.5 ML VIAL IM ONE (09:00)
[2018-11-25] MEDS ORDERED: BENZOCAINE/MENTH/CETYLPYRD CL 1 EACH LOZENGE MM PRN (09:05)
[2018-11-25] MEDS: LISINOPRIL 20 MG TABLET (FP) PO SCH (09:56)
[2018-11-25] MEDS: HYDROCHLOROTHIAZIDE 25 MG TABLET (FP) PO SCH (09:56)
[2018-11-25] MEDS: FERROUS SO4 325 MG TABLET (FP) PO SCH (09:56)
[2018-11-25] MEDS: METOPROLOL TARTRATE 50 MG TABLET (FP) PO SCH (09:57)
[2018-11-25] MEDS ORDERED: [UNRECOGNIZED DRUG - OTHER] IM ONE (12:00)
--- NOTE | 2018-11-25 12:25 | PN ---
Physical Exam: SUBJECTIVE: Patient seen and examined at the bedside. in no acute distress. feels better. having some coughing with thin liquids. OBJECTIVE: right lung with evidence of congestion. possible aspiration pna? will have speech and swallow eval. for now dysphagia pureed diet with nectar thick fluids chest xray ordered by surgery Vital Signs Period Temp Pulse Resp BP Sys/Valentine Pulse Ox Last 24 Hr 99.0 F-99.4 F 63-99 16-20 140-158/76-93 GENERAL: The patient is awake, alert, and fully oriented, in no acute distress. having some pain on shoulders and head HEAD: Normal with no signs of trauma. EYES: left eye blindness ENT: Ears normal, nares patent, oropharynx clear without exudates, moist mucous membranes. NECK: dressing c/d/i HEART: tachycardia improving ABDOMEN: Soft, nontender, nondistended, normoactive bowel sounds, no guarding, no rebound, no hepatosplenomegaly, no masses. NEUROLOGICAL: Normal speech, gait not observed. Laboratory Results - last 24 hr 11/25/18 11/25/18 06:45 06:45 WBC 15.1 H RBC 3.64 Hgb 12.0 Hct 34.3 MCV 94.1 MCH 33.1 MCHC 35.1 RDW 13.3 Plt Count 293 MPV 8.3 Absolute Neuts (auto) 10.6 H Neutrophils % 70.4 Lymphocytes % 16.6 Monocytes % 11.9 H Eosinophils % 1.0 Basophils % 0.1 Nucleated RBC % 0 Sodium 134 L Potassium 3.6 Chloride 98 Carbon Dioxide 28 Anion Gap 8 BUN 8 Creatinine 0.6 Creat Clearance w eGFR 100.65 Random Glucose 95 Calcium 9.0 Magnesium 1.7 L Total Bilirubin 0.5 AST 20 ALT 19 Alkaline Phosphatase 64 Total Protein 7.0 Albumin 3.2 L Active Medications Generic Name Dose Route Start Last Admin Trade Name Freq PRN Reason Stop Dose Admin Atorvastatin Calcium 10 mg 11/25/18 22:00 Lipitor - PO HS ARIANE Benzocaine/Menthol 1 each 11/25/18 09:05 Cepacol Lozenge - MM PRN PRN SORE THROAT Diphenhydramine HCl 25 mg 11/24/18 22:46 Benadryl - PO Q6H PRN FOR ITCHING Docusate Sodium 100 mg 11/25/18 06:00 11/25/18 05:40 Colace - PO 100 mg TID [facility] Administration Ferrous Sulfate 325 mg 11/25/18 10:00 11/25/18 09:56 Feosol - PO 325 mg DAILY ARIANE Administration Gabapentin 300 mg 11/25/18 06:00 11/25/18 05:40 Neurontin - PO 300 mg TID ARIANE Administration Hydrochlorothiazide 25 mg 11/25/18 10:00 11/25/18 09:56 Hctz - PO 25 mg DAILY ARIANE Administration Hydromorphone HCl 10 mg 11/24/18 22:46 11/25/18 06:05 Dilaudid Tree Thinner - BARREL RIFLER BUTTON 11/30/18 12:58 10 mg BARREL RIFLER BUTTON [facility] Administration Protocol Lactated Ringer's 100 ml 11/24/18 22:46 11/25/18 00:13 Lactated Ringers Solution IV 100 ml ASDIR [facility] Administration Lisinopril 20 mg 11/25/18 10:00 11/25/18 09:56 Prinivil PO 20 mg DAILY ARIANE Administration Metoprolol Tartrate 100 mg 11/25/18 10:00 11/25/18 09:57 Lopressor - PO 100 mg DAILY [facility] Administration Morphine Sulfate 4 mg 11/24/18 22:46 Morphine Sulfate IVPUSH Q4H PRN PAIN LEVEL 7 - 10 Ondansetron HCl 4 mg 11/24/18 22:46 11/25/18 10:04 Zofran Injection IVPUSH 4 mg Q4H PRN Administration NAUSEA AND/OR VOMITING Oxycodone HCl 5 mg 11/24/18 22:46 Roxicodone - PO Q4H PRN PAIN LEVEL 1-5 Oxycodone HCl 10 mg 11/24/18 22:46 11/25/18 09:55 Roxicodone - PO 10 mg Q4H PRN Administration PAIN LEVEL 6-10 Promethazine HCl 12.5 mg 11/24/18 22:46 Phenergan Injection - IVPB Q6H PRN NAUSEA AND/OR VOMITING ASSESSMENT/PLAN: patient is a 63 year old female with a significant past medical history of left eye blindness, HTN, HLD, Chronic Cervical Pain, Renal Colic. s/p C4-C5 Anterior Cervical Discectomy with Fusion and Partial Corpectomy POD 2 Cervical surgery Partical corpectomy pod 2 Pain management monitor airway bowel regimen Monitor labs, vitals will change to pureed, thickened fluids Pulm: Possible aspiration pneumonia in the setting of recent cervical surgery chest xray pending wbc bumped up, no fever dysphagia pureed diet swallow eval encourage incentive spriometer Card: Hypertension. On Lisinopril, hctz monitor BP fen dysphagia pureed/nectar monitor electrolytes prophy SCDS Visit type - Emergency Visit Emergency Visit: Yes ED Registration Date: 11/23/18 Care time: The patient presented to the Emergency Department on the above date and was hospitalized for further evaluation of their emergent condition. - New Patient This patient is new to me today: No - Critical Care Critical Care patient: No - Discharge Referral Referred to [facility] No
--- NOTE | 2018-11-25 12:43 | CONSULT ---
Admitting History and Physical - Primary Care Physician PCP: Deshawn Portillo - Admission History of Present Illness: Per EMR: 63 year old female with a significant past medical history of left eye blindness, HTN, HLD, Chronic Cervical Pain, Renal Colic. s/p C4-C5 Anterior Cervical Discectomy with Fusion and Partial Corpectomy POD 2 11/23. Concern for possible aspiration pneumonia in the setting of recent cervical surgery chest xray pending Diet downgraded to pureed, thickened fluids Pt c/o Odynophagia while swallowing, feels like food gets stuck and goes up her nose. Reports coughing at times on thin water. Pt not wearing her cervical collar, says its too uncomfortable. Received Decadron on 11/23. History Source: Patient, Family Member Limitations to Obtaining History: No Limitations - Smoking History Smoking history: Former smoker Have you smoked in the past 12 months: Yes If you are a former smoker, when did you quit?: 1 month ago - Alcohol/Substance Use Hx Alcohol Use: No History - Admission Reason For Visit: CERVICAL DISC DISORDER - Diagnostics X-ray: Pending - General Mental Status: Alert and Oriented, Awake and Alert, Able to Follow Commands Attention: Intact Ability to Follow Directions: Excellent Head/Neck Control: Good (discomfort, 2 days post-op) - Hearing Hearing: Normal Speech Evaluation - Communication Primary Language: CHINESE Communication: Yes: Within Normal Limits Oral Expression Ability: Yes: No Impairment - Speech Production Intelligibility: Yes: WNL - Speech Characteristics Voice Loudness: Normal Voice Pitch: Yes: Normal Voice Phonatory-based Quality: Yes: Normal Speech Pattern: Normal Speech Clarity: < 100% Nasal Resonance: Normal Articulation: Yes: Precise - Language/Auditory Comprehension Follows: Yes: 2 Stage Simple Commands - Language/Verbal Expression Able to Respond to Simple Queries: Yes: WNL Able to Communicate Wants and Needs: Yes: WNL Functional Communication Status: Yes: WNL - Memory/Perception penitentiary Memory: Yes: WNL Short Term Memory: Yes: WNL - Swallow Evaluation/Bedside Assessment Current Nutritional Intake: Dysphagia Pureed, Ferron Textured Liquids, Other ( was on soft/thin liquid and then reg/thin but pt did not eat this am) Dentition: Yes: Adequate Facial Symmetry at Rest: Symmetrical Facial Symmetry on Retraction: Symmetrical Facial Movement: Controlled Sensation: Normal Against Resistance Opening: Normal Against Resistance Closing: Normal Pucker Lips: Normal Smile: Normal Lingual Movement: Normal, Symmetric Lingual Speed of Movement: Normal Lingual Movement Strgth Against Opposition: Normal Lingual Movement Characteristics: Normal Velopharyngeal Movement: Normal Laryngeal Movement: Reduced Excursion, Labored,delay initiation, Other (grimaces , reports nasopharyngeal requrgitation, no cough or vocal changes. Pt is congested, pending CXR) Rate of Intake: Slow/Holding Bolus Size: Small Labial Seal: WFL Oral Prep Time: WFL A-P Transit: WFL Pocketing: None Timing of Swallow: Delayed Odynophagia: Pharyngeal Coughing/Throat Clear: No Change in Voice: No Recommendations - Speech Evaluation, Impression/Plan Impression: Pharyngeal Odynophagia, post-op,grimaces, reports nasopharyngeal requrgitation, no cough or vocal changes. Pt is congested, pending CXR. Suspect sec to acute swelling, with reduced laryngeal excursion, possibly reduced UES relaxation causing redirection of bolus to the naso pharynx. Reported a lot of phlegm this am when she woke up. Asswelling improves, swallowing likely to improve. Careful po intake until improvement noted due to aspiration/stasis risk. - Dysphagia Impressions/Plan Swallowing Skills: Impaired Dysphagia Impressions: Mild Impairment, Moderate Impairment, Risk of Aspiration , Ongoing Evaluation Dysphagia Treatment Plan: Small Bites, Facilitative Feeding, Safe Rate, 1/2 tsp. at a time, Other (alternate puree/ with sip of nectar. Yankower available. Supervision mealtime.) Recommendations: Modified Barium Swallow (if difficulty persists, or congestion increases, temp,wbc) - Recommendations Diet Consistency: Dysphagia Pureed Medication Administration: Crushed with applesauce Liquids: Ferron Thick Supplement: Magic Cup
[2018-11-25] MEDS ORDERED: DEXAMETHASONE 4 MG TABLET (FP) PO ONE (13:36)
--- NOTE | 2018-11-25 16:40 | PATH ---
Surgical Pathology Report Patient Name: SANDOVAL PISANO Med. Rec. #: [id number] /Age/Gender: 1955 (Age: 63) / F Account: [id number] Location: [facility]URG Taken: 11/23/2018 Received: 11/24/2018 Reported: 11/25/2018 Physicians: Pineda Dial M.D. Specimen(s) Received CERVICAL DISC Clinical History Cervical disorder Final Diagnosis CERVICAL DISC, DISCECTOMY: FRAGMENTS OF BONE AND CARTILAGINOUS TISSUE WITH DEGENERATIVE CHANGE. SEPARATE SKELETAL MUSCLE WITH NO SIGNIFICANT PATHOLOGIC CHANGE. Electronically Signed Duran Hardin M.D. Gross Description Received in formalin, labeled "cervical disc" are multiple fibrotic, cartilaginous and possible bone tissue measuring 2.5 x 2.5 x 0.3 cm. in aggregate. Cardiopulmonary Physical Therapist sections are submitted in one cassette after decalcification KWS/11/24/2018 [email or web address]/11/24/2018
--- NOTE | 2018-11-25 18:05 | PN ---
Progress Note (short form) - Note Progress Note: POD #2 Doing well C/O neck pain No UE or LE extremity Neck Mild swelling echymosis ant prox chest Voice OK Wound dry Swallowing intermittent feeling of aspiration Not aspirating PLAN Mobilize Soft food as tolerated Decadron 10mg tomorrow am D/C home or rehab depending on PT and mobilization Pain mx
[2018-11-25] MEDS ORDERED: PT OWN MED DRAWER 7, Y5N ONE (20:53)
[2018-11-25] MEDS: ATORVASTATIN CA 10 MG TABLET (FP) PO SCH (21:00)
[2018-11-26] MEDS: DOCUSATE SODIUM 100 MG CAPSULE (FP) PO SCH ×3 (06:52→21:31)
[2018-11-26] MEDS: oxyCODONE HCL 5 MG TABLET PO PRN ×3 (06:53→20:35)
[2018-11-26] MEDS ORDERED: ACETAMINOPHEN 1000 MG/100 ML VIAL (NON FORMULARY) IVPB PRN (08:31)
--- NOTE | 2018-11-26 08:31 | PN ---
Progress Note (short form) - Note Progress Note: Patient stable and c/o pain score of 7-8/10 on Dilaudid PULPWOOD CONTRACTOR.Patient is on other pain medications as well.Will review and see if i can add anything to it.Will continue PULPWOOD CONTRACTOR and will f/u tomorrow.
[2018-11-26] MEDS: GABAPENTIN 300 MG CAPSULE (FP) PO SCH ×3 (08:53→21:31)
[2018-11-26] MEDS ORDERED: [UNRECOGNIZED DRUG - OTHER] IM ONE (09:00)
[2018-11-26 09:49] LABS: BASO % 0.2 % (0-2.0); HEMOGLOBIN 12.2 GM/dL (10.7-15.3); LYMPH % 13.6 % (8-40); MCHC 34.8 g/dl (32.0-36.0); MEAN CELL VOLUME 94.8 fl (80-96); MEAN PLT VOLUME 8.6 fl (7.5-11.1); MONO % 10.6 % (3.8-10.2); NEUT % 74.6 % (42.8-82.8); PLATELET COUNT 298 K/MM3 (134-434); RBC 3.69 M/mm3 (3.60-5.2); RDW 13.3 % (11.6-15.6); WHITE BLOOD COUNT 13.7 K/mm3 (4.0-10.0)
[2018-11-26] MEDS: METOPROLOL TARTRATE 50 MG TABLET (FP) PO SCH (10:07)
[2018-11-26] MEDS: FERROUS SO4 325 MG TABLET (FP) PO SCH (10:07)
--- NOTE | 2018-11-26 10:36 | PN ---
Progress Note, AIR COMPRESSOR OPERATOR - Note Progress Note: CXR noted Selected Entries 11/25/18 11/25/18 11/25/18 06:00 10:00 10:21 Breakfast 75% Lunch Supper Temperature 99.0 F 99.4 F 11/25/18 11/25/18 11/25/18 14:00 16:30 18:30 Breakfast Lunch 25% Supper 75% Temperature 98.6 F 98.2 F 11/25/18 11/26/18 11/26/18 22:00 01:59 06:00 Breakfast Lunch Supper Temperature 999.2 F H 98.6 F 98.6 F Laboratory Tests 11/24/18 11/25/18 11/26/18 05:30 06:45 08:42 WBC 12.4 H 15.1 H 13.7 H Pt is refusing puree/nectar. She looks much better, sitting up, not congested, reports pain but looks much more comfortable. No longer grimacing when swallowing, no cough response or vocal wetness, and denies food entering her nasopharynx today. Tolerated thin water and fruit overtly. Silent aspiration can not be r/o at bedside. She tells me that she has a premorbid h/o food sticking, needing to drink to push down her food. She was going to go to her doctor but hadnt. REC: Soft regular diet Thin liquids OOB in chair for meals Alternate solids with liquids and complete meal with liquid ENT/GI upon d/c regarding reported premorbid dysphagia.
[2018-11-26] MEDS: LISINOPRIL 20 MG TABLET (FP) PO SCH (11:08)
[2018-11-26] MEDS: HYDROCHLOROTHIAZIDE 25 MG TABLET (FP) PO SCH (11:08)
[2018-11-26 11:15] LABS: ALBUMIN 3.1 g/dl (3.4-5.0); ALK PHOS 67 U/L (45-117); ANION GAP 9 MMOL/L (8-16); BILIRUBIN,TOTAL 0.6 mg/dL (0.2-1); BLOOD UREA NITROGEN 11 mg/dL (7-18); CALCIUM 9.1 mg/dL (8.5-10.1); CHLORIDE 96 mmol/L (98-107); CO2 32 mmol/L (21-32); CREATININE 0.6 mg/dL (0.55-1.3); GLUCOSE,RANDOM 72 mg/dL (74-106); MAGNESIUM 1.8 mg/dL (1.8-2.4); POTASSIUM 3.6 mmol/L (3.5-5.1); SGOT/AST 22 U/L (15-37); SGPT/ALT 18 U/L (13-61); SODIUM 137 mmol/L (136-145); TOT PROT 7.2 g/dl (6.4-8.2)
--- NOTE | 2018-11-26 12:09 | PN ---
Physical Exam: SUBJECTIVE: Patient seen and examined at the bedside. feels better today, had coughing this a.m. with lots of phelgm. reprots feeling constipated OBJECTIVE: swallowing improved. in no acute distress. feels better. lungs mostly clear to auscultation diet advanced to soft, thin liquids per swallow eval Vital Signs Period Temp Pulse Resp BP Sys/Valentine Pulse Ox Last 24 Hr 98.2 F-999.2 F 61-117 18-20 117-154/57-91 96 GENERAL: The patient is awake, alert, and fully oriented, in no acute distress. HEAD: Normal with no signs of trauma. EYES: left eye blindness ENT: Ears normal, nares patent, oropharynx clear without exudates, moist mucous membranes. NECK: dressing c/d/i HEART: tachycardia resolved ABDOMEN: Soft, nontender, nondistended, normoactive bowel sounds, no guarding, no rebound, no hepatosplenomegaly, no masses. NEUROLOGICAL: Normal speech, gait not observed. Laboratory Results - last 24 hr 11/26/18 11/26/18 08:42 08:42 WBC 13.7 H RBC 3.69 Hgb 12.2 Hct 35.0 MCV 94.8 MCH 33.0 MCHC 34.8 RDW 13.3 Plt Count 298 MPV 8.6 Absolute Neuts (auto) 10.2 H Neutrophils % 74.6 Lymphocytes % 13.6 Monocytes % 10.6 H Eosinophils % 1.0 Basophils % 0.2 Nucleated RBC % 0 Sodium 137 Potassium 3.6 Chloride 96 L Carbon Dioxide 32 Anion Gap 9 BUN 11 Creatinine 0.6 Creat Clearance w eGFR 100.65 Random Glucose 72 L Calcium 9.1 Magnesium 1.8 Total Bilirubin 0.6 AST 22 ALT 18 Alkaline Phosphatase 67 Total Protein 7.2 Albumin 3.1 L Active Medications Generic Name Dose Route Start Last Admin Trade Name Freq PRN Reason Stop Dose Admin Acetaminophen 1,000 mg 11/26/18 08:31 Ofirmev Injection - IVPB Q6H PRN PAIN LEVEL 4 - 6 Atorvastatin Calcium 10 mg 11/25/18 22:00 11/25/18 21:00 Lipitor - PO 10 mg HS ARIANE Administration Benzocaine/Menthol 1 each 11/25/18 09:05 Cepacol Lozenge - MM PRN PRN SORE THROAT Diphenhydramine HCl 25 mg 11/24/18 22:46 Benadryl - PO Q6H PRN FOR ITCHING Docusate Sodium 100 mg 11/25/18 06:00 11/26/18 06:52 Colace - PO Not Given TID [facility] Ferrous Sulfate 325 mg 11/25/18 10:00 11/26/18 10:07 Feosol - PO 325 mg DAILY [facility] Administration Gabapentin 300 mg 11/25/18 06:00 11/26/18 08:53 Neurontin - PO Not Given TID [facility] Hydrochlorothiazide 25 mg 11/25/18 10:00 11/26/18 11:08 Hctz - PO 25 mg DAILY [facility] Administration Hydromorphone HCl 10 mg 11/24/18 22:46 11/25/18 23:42 Dilaudid Pinsetter Mechanic Automatic - NATIONAL BUSINESS DIRECTOR 11/30/18 12:58 10 mg NATIONAL BUSINESS DIRECTOR [facility] Administration Protocol Lactated Ringer's 100 ml 11/24/18 22:46 11/25/18 22:53 Lactated Ringers Solution IV 100 ml ASDIR [facility] Administration Lisinopril 20 mg 11/25/18 10:00 11/26/18 11:08 Prinivil PO 20 mg DAILY [facility] Administration Metoprolol Tartrate 100 mg 11/25/18 10:00 11/26/18 10:07 Lopressor - PO 100 mg DAILY [facility] Administration Morphine Sulfate 4 mg 11/24/18 22:46 Morphine Sulfate IVPUSH Q4H PRN PAIN LEVEL 7 - 10 Ondansetron HCl 4 mg 11/24/18 22:46 11/25/18 10:04 Zofran Injection IVPUSH 4 mg Q4H PRN Administration NAUSEA AND/OR VOMITING Oxycodone HCl 5 mg 11/24/18 22:46 11/26/18 11:49 Roxicodone - PO 5 mg Q4H PRN Administration PAIN LEVEL 1-5 Oxycodone HCl 10 mg 11/24/18 22:46 11/26/18 06:53 Roxicodone - PO 10 mg Q4H PRN Administration PAIN LEVEL 6-10 Promethazine HCl 12.5 mg 11/24/18 22:46 Phenergan Injection - IVPB Q6H PRN NAUSEA AND/OR VOMITING ASSESSMENT/PLAN: Patient is a 63 year old female with a significant past medical history of left eye blindness, HTN, HLD, Chronic Cervical Pain, renal Colic. s/p C4-C5 anterior cervical discectomy with fusion and partial corpectomy POD 3 Cervical surgery Partical corpectomy pod 3 Pain managed with dilaudid operations manager assistant per anesthesia stable airway, given decadron 2mg yesterday bowel regimen Monitor labs, vitals swallowing improved, now back on soft diet and thin liquids Card: Hypertension. On Lisinopril, hctz monitor BP fen soft diet, thin liquids monitor electrolytes prophy SCDS Visit type - Emergency Visit Emergency Visit: Yes ED Registration Date: 11/23/18 Care time: The patient presented to the Emergency Department on the above date and was hospitalized for further evaluation of their emergent condition. - New Patient This patient is new to me today: No - Critical Care Critical Care patient: No - Discharge Referral Referred to [facility] No
--- NOTE | 2018-11-26 13:29 | PN ---
Progress Note (short form) - Note Progress Note: POD #3, s/p C3-C4 partial corpectomy, C4-C5 anterior cervical corpectomy. Patient seen and examined. States she is feeling much better than she was yesterday. Reports she is able to swallow with more ease. Has been oob without issue. Tolerating PO. Endorses muscle spasms b/l traps. Denies any CP, SOB, Fever, Chills, N/v/d. Vital Signs Temp 98.6 F 11/26/18 06:00 Pulse 117 H 11/26/18 06:00 Resp 20 11/26/18 06:00 BP 154/81 11/26/18 06:00 Pulse Ox 96 11/25/18 21:00 Intake & Output 11/25/18 11/26/18 11/26/18 23:59 11:59 23:59 Intake Total 1440 1400 Output Total 1850 250 Balance -410 1150 Intake: IV 1000 1100 Lactated Ringers Solution 1000 1,000 ml @ 125 mls/hr IV ASDIR ARIANE Rx#: [id number] s/l 1100 Oral 440 300 Output: Urine 1850 250 Mancini 1300 Void 550 250 Other: Voiding Method Toilet Toilet # Unmeasured Voids Void 1 Bowel Movement No CBC, BMP 11/26/18 08:42 11/26/18 08:42 PE: Gen: A&Ox3, NAD. Laying in bed with daughter at bedside Resp: Unlabored resp on RA Neck: Dressing c/d/i, focal edema/hematoma over R lateral aspect of incision, remainder of incision soft, no palpable hematoma. Mild ttp, + mild ecchymosis over proximal chest extending from neck down Neuro: B/l UE pediatric occupational therapist strength strong and equal b/l. B/L biceps/triceps 5/5, Shoulder shrug strong and equal b/l. SILT b/l. B/L le dorsiflexion/plantar flexion 5/5, SILT b/l. B/L LE compartments soft,supple and non-tender with +2 DP pulses. A/P: 63 y/o F w/ pmhx HTN, HLD, and cervical disc disorder now POD 3, s/p C3-C4 partial corpectomy, C4-C5 anterior cervical corpectomy. Doing well post op. Afebrile, VSS. WBC trending down. OOB with soft collar and PT as tolerated Pain control per anesthesia DVT and GI prophylaxis Advance diet as tolerated Cold pack to chest and neck, warm packs to b/l traps above d/w attending Dr Dial
[2018-11-26] MEDS: POLYETHYLENE GLYCOL 3350 119 GM BTL PO SCH (13:57)
[2018-11-26] MEDS ORDERED: LIDOCAINE PATCH REMOVAL MC ONE (15:00)
[2018-11-26] MEDS ORDERED: LIDOCAINE 5% TOPICAL PATCH TP ONE (15:41)
[2018-11-26] MEDS: ATORVASTATIN CA 10 MG TABLET (FP) PO SCH (21:31)
[2018-11-26] MEDS ORDERED: LIDOCAINE PATCH REMOVAL MC SCH (22:00)
[2018-11-26] MEDS: LACTATED RINGERS SOLUTION 1000 ML INFUS.BAG IV SCH (22:24)
[2018-11-26] MEDS: HYDROmorphone *PCA* 10MG/50ML DISP.SYRIN PCA SCH (23:25)
[2018-11-27] MEDS: oxyCODONE HCL 5 MG TABLET PO PRN ×2 (04:35→13:32)
[2018-11-27] MEDS: GABAPENTIN 300 MG CAPSULE (FP) PO SCH ×2 (06:13→13:18)
[2018-11-27] MEDS: DOCUSATE SODIUM 100 MG CAPSULE (FP) PO SCH ×2 (06:13→13:18)
[2018-11-27 07:34] LABS: BASO % 0.7 % (0-2.0); EOS % 2.1 % (0-4.5); HEMATOCRIT 33.5 % (32.4-45.2); HEMOGLOBIN 11.9 GM/dL (10.7-15.3); LYMPH % 18.9 % (8-40); MCH 33.8 pg (25.7-33.7); MCHC 35.5 g/dl (32.0-36.0); MONO % 11.5 % (3.8-10.2); NEUT % 66.8 % (42.8-82.8); PLATELET COUNT 311 K/MM3 (134-434); RBC 3.52 M/mm3 (3.60-5.2); RDW 13.3 % (11.6-15.6); WHITE BLOOD COUNT 11.8 K/mm3 (4.0-10.0)
[2018-11-27] MEDS ORDERED: ACETAMINOPHEN 325 MG TABLET (FP) PO PRN (07:52)
[2018-11-27 08:20] LABS: ALK PHOS 61 U/L (45-117); ANION GAP 8 MMOL/L (8-16); BILIRUBIN,TOTAL 0.5 mg/dL (0.2-1); BLOOD UREA NITROGEN 15 mg/dL (7-18); CALCIUM 8.9 mg/dL (8.5-10.1); CHLORIDE 96 mmol/L (98-107); CO2 30 mmol/L (21-32); CREATININE 0.6 mg/dL (0.55-1.3); GLUCOSE,RANDOM 81 mg/dL (74-106); POTASSIUM 3.5 mmol/L (3.5-5.1); SGOT/AST 22 U/L (15-37); SGPT/ALT 21 U/L (13-61); SODIUM 134 mmol/L (136-145); TOT PROT 6.8 g/dl (6.4-8.2)
--- NOTE | 2018-11-27 08:44 | PN ---
Progress Note (short form) - Note Progress Note: POD #4, s/p C3-C4 partial corpectomy, C4-C5 anterior cervical corpectomy. Patient seen and examined. Reports pain is slightly worse today. Endorses significant muscle spasms at b/l traps. States she is concerned something is "out of place" as she has "bad luck" and she is feeling some pressure/ discomfort in her neck and the back of her throat. Has been oob without issue. Tolerating PO, ate hamburger last night. Denies any CP, SOB, Fever, Chills, N/v/ d. Vital Signs Temp 99.2 F 11/27/18 06:45 Pulse 74 11/27/18 06:45 Resp 20 11/27/18 06:45 BP 148/69 11/27/18 06:45 Pulse Ox 93 L 11/26/18 21:00 Intake & Output 11/26/18 11/26/18 11/27/18 11:59 23:59 11:59 Intake Total 1400 600 550 Output Total 250 450 Balance 1150 150 550 Intake: IV 1100 600 500 s/l 1100 600 500 IVPB 50 Oral 300 Output: Urine 250 450 Void 250 450 Other: Voiding Method Toilet Toilet # Unmeasured Voids Void 1 1 1 Bowel Movement No No No CBC, BMP 11/27/18 06:30 11/27/18 06:30 PE: Gen: A&Ox3, NAD. Laying in bed with daughter at bedside Resp: Unlabored resp on RA Neck: Dressing with minimal serosanguinous drainage R side. Focal edema/ hematoma over R lateral aspect of incision, remainder of incision soft, no palpable hematoma. Mild ttp, + mild ecchymosis over proximal chest extending from neck down Neuro: B/l UE candle making supervisor strength strong and equal b/l. B/L biceps/triceps 5/5, Shoulder shrug strong and equal b/l. SILT b/l. B/L le dorsiflexion/plantar flexion 5/5, SILT b/l. B/L LE compartments soft,supple and non-tender with +2 DP pulses. A/P: 63 y/o F w/ pmhx HTN, HLD, and cervical disc disorder now POD 4, s/p C3-C4 partial corpectomy, C4-C5 anterior cervical corpectomy. Doing well post op. Afebrile, VSS. WBC continues to trend down. Flexeril 5mg qd ordered for muscle spasms OOB with soft collar and PT as tolerated Pain control per anesthesia DVT and GI prophylaxis Advance diet as tolerated Cold pack to chest and neck, warm packs to b/l traps Plan d/w attending who is requesting CT neck. Pt planned for d/c. DIRECTOR MEDICAL AFFAIRS and RN contacted regarding plan for imaging. CT ordered and radiology contacted regarding expediting scan. Attending will be made aware after scan for review of images and if no issues discharge can proceed. d/w attending Dr Dial
[2018-11-27] MEDS ORDERED: CYCLOBENZAPRINE HCL 5 MG TABLET PO SCH (10:00)
[2018-11-27] MEDS: METOPROLOL TARTRATE 50 MG TABLET (FP) PO SCH (10:40)
[2018-11-27] MEDS: HYDROCHLOROTHIAZIDE 25 MG TABLET (FP) PO SCH (10:41)
[2018-11-27] MEDS: LISINOPRIL 20 MG TABLET (FP) PO SCH (10:41)
[2018-11-27] MEDS: POLYETHYLENE GLYCOL 3350 119 GM BTL PO SCH (10:41)
[2018-11-27] MEDS: FERROUS SO4 325 MG TABLET (FP) PO SCH (10:41)
[2018-11-27] MEDS ORDERED: LIDOCAINE 5% TOPICAL PATCH TP SCH (10:45)
[2018-11-27] MEDS ORDERED: NICOTINE 21 MG/24 HOURS TOPICAL PATCH TD SCH (10:45)
--- NOTE | 2018-11-27 10:47 | DS ---
Physical Exam: SUBJECTIVE: Patient seen and examined at the bedside. feels better today. pain more controlled. c/o of left shoulder pain. had fallen in bathtub 2 years ago and attributes this shoulder pain to the fall. was never fractured per patient, just has episodes when pain worsens. She is agreeing to follow up with ortho as an outpatient. she denies chest pain or shortness of breath. OBJECTIVE: ROM of this shoulder is normal. inspection of skin shows no lesions or redness. Vital Signs Period Temp Pulse Resp BP Sys/Valentine Pulse Ox Last 24 Hr 98.4 F-99.2 F 61-75 18-20 130-148/61-89 93 PHYSICAL EXAM GENERAL: The patient is awake, alert, and fully oriented, in no acute distress. HEAD: Normal with no signs of trauma. EYES: left eye blindness ENT: Ears normal, nares patent, oropharynx clear without exudates, moist mucous membranes. NECK: dressing c/d/i - dressing to be changed by surgery as an outpatient UPPER EXT: left shoulder with normal ROM, still having some pain of left shoulder that radiates to her left neck. HEART: tachycardia resolved LUNGS: clear to auscultation bilaterally ABDOMEN: Soft, nontender, nondistended, normoactive bowel sounds, no guarding, no rebound, no hepatosplenomegaly, no masses. NEUROLOGICAL: Normal speech, gait not observed. LABS Laboratory Results - last 24 hr 11/26/18 11/27/18 11/27/18 08:42 06:30 06:30 WBC 11.8 H RBC 3.52 L Hgb 11.9 Hct 33.5 MCV 95.0 MCH 33.8 H MCHC 35.5 RDW 13.3 Plt Count 311 MPV 9.0 Absolute Neuts (auto) 7.9 Neutrophils % 66.8 Lymphocytes % 18.9 D Monocytes % 11.5 H Eosinophils % 2.1 D Basophils % 0.7 D Nucleated RBC % 0 Sodium 137 134 L Potassium 3.6 3.5 Chloride 96 L 96 L Carbon Dioxide 32 30 Anion Gap 9 8 BUN 11 15 Creatinine 0.6 0.6 Creat Clearance w eGFR 100.65 100.65 Random Glucose 72 L 81 Calcium 9.1 8.9 Magnesium 1.8 Total Bilirubin 0.6 0.5 AST 22 22 ALT 18 21 Alkaline Phosphatase 67 61 Total Protein 7.2 6.8 Albumin 3.1 L 3.0 L HOSPITAL COURSE: Date of Admission:11/23/18 Date of Discharge: 11/27/18 Patient is a 63 year old female with a significant past medical history of left eye blindness, HTN, HLD, Chronic Cervical Pain, renal Colic. s/p C4-C5 anterior cervical discectomy with fusion and partial corpectomy POD4. She will be discharged home today with surgical outpatient follow up. Cervical surgery Partical corpectomy pod 4 Pain managed oxycodone. patient has oxycodone at home. stable airway, tolerating room air. swallowing improved, now back on soft diet and thin liquids. lungs clear bilaterally pt to follow up with dr. navarrete Card: Hypertension. On Lisinopril, hctz monitor BP discharge home. Minutes to complete discharge: 60 Discharge Summary Reason For Visit: CERVICAL DISC DISORDER Current Active Problems Cervical pain (neck) (Acute) HLD (hyperlipidemia) (Acute) HTN (hypertension) (Acute) Macular degeneration (Acute) S/P cervical discectomy (Acute) Condition: Stable - Instructions Diet, Activity, Other Instructions: Post-operative Instructions Wound Keep your dressing clean and dry and in place. Do not remove unless it becomes dirty, if this happens you should call the office prior to removing the dressing. Do not shower until you are cleared by your surgeon. Sponge bathe only. Do not swim or soak in water (bath/hot tub, etc) until cleared by your surgeon as this can lead to infection. Do not put creams or ointments on the wound for at least 4 weeks. Diet Cold liquids/foods (like ice chips, pudding, yogurt, ice cream, popsicles) are recommended initially then progress slowly to advance diet. Avoid hot foods for at least the first several days after surgery. A sensation of having a lump in your throat is normal. This may make it feel uncomfortable to swallow large bites of solid food. You should take small bites, chew well, and/or eat soft foods until this resolves. Make sure to increase your fiber intake and drink plenty of fluids (unless you have fluid restrictions due to a medical condition), to prevent constipation which is a side affect of narcotic pain medication. You may also take a stool softener such as Dulcolax. Pain Relief Take pain medication as prescribed. DO NOT EVER DRIVE OR OPERATE HEAVY MACHINERY WHILE TAKING NARCOTIC PAIN MEDICATION. If the pain medication you have been prescribed for pain contains Acetaminophen (Tylenol), do not take additional Acetaminophen. No anti-inflammatory medications (NSAIDs: Motrin, Ibuprofen, Excedrin, Advil , Aspirin, etc) for 3 months following surgery. Use of these medications could delay the healing of your fusion. Exercise/Activity Avoid riding in a car for 2 weeks unless medically necessary. The best exercise is walking. Small amounts done frequently are best. Try to set a goal of one mile per day total. It is best to stay mobile to avoid development of blood clots in your legs. Repetitive activities using your arms may aggravate muscle spasms around your neck and upper back. Modify your activity with this in mind. Do not lift your arms above your head for the first 8 weeks after surgery. It is okay to raise your arms to comb and wash your hair once you are cleared to shower. Do not lift more than 5 lbs for the first 8 weeks after surgery. Avoid stairs while you are wearing your collar they are a fall hazard. NO running. You may use a treadmill to walk, with no incline. Use with caution. You may sleep on your side or back but NOT on your stomach as long as your cervical is securely in place. Many patients find comfort in a reclining chair. You may NOT drive until cleared by your surgeon. You may be a passenger for a short time (20 - 30 minutes) until you are able to tolerate longer distances. No sexual activity until discussed with your spine surgeon. DO NOT SMOKE. This increases the chance that your bone will not heal properly. See your primary care physician if you need assistance to quit smoking. Follow-up Please call the office to schedule your follow up appointment in 1 week. Call your doctors office or go to the ER immediately if you develop: Trouble breathing, chest tightness or shortness of breath Oral temperature greater than 100.5 F Excessive redness, swelling, or drainage at the incision site, particularly swelling around the neck incision. Foul odor from the incision. New, increasing pain/numbness/weakness in your arms/legs Disposition: HOME - Home Medications Comprehensive Discharge Medication List: Ambulatory Orders Lisinopril/Hydrochlorothiazide [Lisinopril-Hctz 20-25 mg Tab] 1 each PO DAILY Metoprolol Tartrate [Lopressor] 100 mg PO DAILY 11/20/18 Multivitamin [Multiple Vitamins] 1 each PO DAILY 11/20/18 Simvastatin [Zocor -] 10 mg PO DAILY 11/20/18 Turmeric 400 mg PO DAILY 11/20/18 Vit A/C/E AC/Znox/Cupric Oxide [Eyeprotect Tablet] 1 each PO DAILY 11/20/18 Gabapentin 300 mg PO TID 11/23/18 Oxycodone HCl/Acetaminophen [Endocet 10-325 mg Tablet] 1 each PO PRN PRN This patient is new to me today: Yes Date on this admission: 11/27/18 Emergency Visit: No Critical Care patient: No - Discharge Referral Referred to [facility] No
--- NOTE | 2018-11-27 11:44 | PN ---
Progress Note, SIDE PIECE COVERER - Note Progress Note: Selected Entries 11/26/18 11/26/18 11/26/18 01:59 06:00 09:00 Breakfast Diet Tolerated Supper Temperature 98.6 F 98.6 F 98.4 F 11/26/18 11/26/18 11/26/18 14:00 17:35 20:36 Breakfast Diet Tolerated Well Supper 50% Temperature 98.7 F 98.4 F 11/27/18 11/27/18 06:45 10:35 Breakfast 50% Diet Tolerated Supper Temperature 99.2 F Laboratory Tests 11/27/18 06:30 WBC 11.8 H Tolerating diet upgrade Soft regular diet Thin liquids OOB in chair for meals Alternate solids with liquids and complete meal with liquid ENT/GI upon d/c regarding reported premorbid dysphagia.
[2018-11-27 13:57] VITALS: BP 150/72; PULSE 85; TEMP 98.7
[2018-11-27] MEDS ORDERED: LIDOCAINE PATCH REMOVAL MC SCH (22:00)
== END 2018-11-27 14:00 | disposition home or self-care (01) | DRG 321 ==
LOC: JSAMEDAYSX 09:12 → JICU 17:13 → J8W 11-24 22:35
PROVIDERS: ADMIT Orthopaedic Surgery Orthopaedic Surgery of the Spine; ATTEND Nurse Practitioner Family
PROC: 0RB30ZZ Excision of Cervical Vertebral Disc, Open Approach (ICD-10-PCS; 2018-11-23)
PROC: 4A1104G Monitoring of Peripheral Nervous Electrical Activity, Intraoperative, Open Approach (ICD-10-PCS; 2018-11-23)
PROC: 0RG2070 Fusion of 2 or more Cervical Vertebral Joints with Autologous Tissue Substitute, Anterior Approach, Anterior Column, Open Approach (ICD-10-PCS; 2018-11-23)
PROC: 0RG20A0 Fusion of 2 or more Cervical Vertebral Joints with Interbody Fusion Device, Anterior Approach, Anterior Column, Open Approach (ICD-10-PCS; principal; 2018-11-23 11:00)
DX: M48.02 Spinal stenosis, cervical region (principal); M47.12 Other spondylosis with myelopathy, cervical region; M54.12 Radiculopathy, cervical region; M50.01 Cervical disc disorder with myelopathy, high cervical region; M50.021 Cervical disc disorder at C4-C5 level with myelopathy; M50.022 Cervical disc disorder at C5-C6 level with myelopathy; H54.40 Blindness, one eye, unspecified eye; I10 Essential (primary) hypertension; E78.5 Hyperlipidemia, unspecified
CPT/HCPCS: 36415; 71045-TC-FY; 72125-TC; 76000-TC-FY; 80048; 80053; 83735; 84100; 85025; 85027; 88304-TC; 88311-TC; 90732; 97116-GP; 97162-GP; G0009; J0131; J1644